=== PATIENT | female | born 1980 | race Two or more races ===

== ENCOUNTER 2018-10-29 10:28 | Inpatient (IN) | payer OTHER ==
[~2018-10-29] VITALS: Ht 162.6 cm; Wt 119.3 kg
== END 2018-10-31 13:59 | disposition home or self-care (01) | DRG 807 ==
LOC: LDR 10:28 → OB/GYN 10:28
PROC: 10E0XZZ Delivery of Products of Conception, External Approach (ICD-10-PCS; principal; 2018-10-29)
PROC: 0HQ9XZZ Repair Perineum Skin, External Approach (ICD-10-PCS; 2018-10-29)
PROC: 4A1HXCZ Monitoring of Products of Conception, Cardiac Rate, External Approach (ICD-10-PCS; 2018-10-29)
DX: O70.0 First degree perineal laceration during delivery (principal); Z37.0 Single live birth; Z3A.39 39 weeks gestation of pregnancy

== ENCOUNTER 2023-05-22 15:00 | Emergency (ER) | payer OTHER ==
[~2023-05-22] VITALS: Ht 162.6 cm; Wt 136.1 kg
[2023-05-22] MEDS ORDERED: LOSARTAN POTAS100 MG PO (15:40)
== END 2023-05-22 21:26 | disposition home or self-care (01) ==
LOC: ER 15:00
DX: S89.82XA Other specified injuries of left lower leg, initial encounter (principal); W22.8XXA Striking against or struck by other objects, initial encounter; Y93.89 Activity, other specified; Y92.813 Airplane as the place of occurrence of the external cause; I10 Essential (primary) hypertension

== ENCOUNTER 2023-05-23 13:49 | Outpatient (CLI) | payer OTHER ==
[~2023-05-23 13:49] MED LIST: LOSARTAN POTAS100 MG PO
== END 2023-05-23 13:51 | disposition home or self-care (01) ==
LOC: NUCLEAR 13:49
PROVIDERS: ATTEND General Practice
DX: M79.605 Pain in left leg (principal)